=== PATIENT | female | born 1990 | race Caucasian/White ===

== ENCOUNTER → 2024-04-16 16:34 | Outpatient (REF) | payer BC, SELFPAY | LOC: PNTC 16:34 | PROVIDERS: ATTENDING PHYSICIAN Obstetrics & Gynecology | DX: O09.519 Supervision of elderly primigravida, unspecified trimester (principal); O99.283 Endocrine, nutritional and metabolic diseases complicating pregnancy, third trimester | CPT/HCPCS: 76801; 76813 ==

== ENCOUNTER → 2024-06-05 08:05 | Outpatient (REF) | payer BC, SELFPAY | LOC: PNTC 08:05 | PROVIDERS: ATTENDING PHYSICIAN Obstetrics & Gynecology | DX: O09.519 Supervision of elderly primigravida, unspecified trimester (principal); O34.80 Maternal care for other abnormalities of pelvic organs, unspecified trimester | CPT/HCPCS: 76811 ==

== ENCOUNTER → 2024-09-09 17:21 | Outpatient (REF) | payer BC, SELFPAY | LOC: PNTC 17:21 | PROVIDERS: ATTENDING PHYSICIAN Advanced Practice Midwife | DX: O09.519 Supervision of elderly primigravida, unspecified trimester (principal) | CPT/HCPCS: 76816 ==

== ENCOUNTER → 2024-09-18 16:16 | Outpatient (REF) | payer BC, SELFPAY | LOC: PNTC 16:16 | PROVIDERS: ATTENDING PHYSICIAN Advanced Practice Midwife | DX: O41.03X0 Oligohydramnios, third trimester, not applicable or unspecified (principal) | CPT/HCPCS: 76815 ==

== ENCOUNTER → 2024-10-01 15:43 | Outpatient (REF) | payer BC, SELFPAY | LOC: PNTC 15:43 | PROVIDERS: ATTENDING PHYSICIAN Obstetrics & Gynecology | DX: O36.63X0 Maternal care for excessive fetal growth, third trimester, not applicable or unspecified (principal) | CPT/HCPCS: 76816 ==

== ENCOUNTER → 2024-10-08 09:18 | Outpatient (REF) | payer BC, SELFPAY | LOC: PNTC 09:18 | PROVIDERS: ATTENDING PHYSICIAN Advanced Practice Midwife | DX: Z34.93 Encounter for supervision of normal pregnancy, unspecified, third trimester (principal) | CPT/HCPCS: 59025; 76815 ==

== ENCOUNTER 2024-10-15 14:32 | Inpatient (IN) | payer BC, SELFPAY ==
[2024-10-15 12:21] VITALS: BP 149/60; BMI 37.1
[2024-10-15 12:43] LABS: % Basophils 0.7 % (0-2); % Eosinophils 1.2 % (0-6); % Immature Granulocytes 1.1 % (0-0.5); % Lymphocytes 28.8 % (20.5-51.1); % Monocytes 5.3 % (1.7-9.3); % Neutrophils 62.9 % (42.2-75.2); Absolute Basophils 0.1 10^3/uL (0-0.2); Absolute Eosinophils 0.2 10^3/uL (0-0.7); Absolute Immature Granulocytes 0.2 10^3/uL (0-0.05); Absolute Lymphocytes 3.8 10^3/uL (1.2-3.4); Absolute Monocytes 0.7 10^3/uL (0.1-0.6); Absolute Neutrophils 8.2 10^3/uL (1.4-6.5); Hemoglobin 12.4 g/dL (12.0-16.0); Mean Corp Hgb Conc. 32.6 g/dL (33.0-37.0); Mean Corpuscular Hgb 27.2 pg (27.0-31.0); Mean Corpuscular Volume 83.3 fL (81.0-99.0); Mean Platelet Volume 11.4 fL (7.4-10.4); Nucleated Red Blood Cells % 0 %; Platelet Count 400 10^3/uL (130-400); Red Blood Cell Count 4.56 10^6/uL (4.20-5.40); Red Cell Dist. Width 13.2 % (11.5-14.5); White Blood Cell Count 13.1 10^3/uL (4.8-10.8)
[2024-10-15 13:18] LABS: ALT (SGPT) 25 U/L (0-35); AST (SGOT) 31 U/L (14-36); Albumin 4.1 g/dl (3.5-5.0); Alkaline Phosphatase 118 U/L (38-126); Blood Urea Nitrogen 13 mg/dl (7-17); Calcium 10.1 mg/dl (8.4-10.2); Carbon Dioxide 21 mmol/L (22-30); Chloride 100 mmol/L (98-107); Estimated Creatinine Clearance > 125 ml/min; Glucose 70 mg/dl (70-99); Potassium 4.2 mmol/L (3.5-5.1); Sodium 132 mmol/L (135-145); Total Bilirubin 0.3 mg/dl (0.2-1.3); eGFR > 60.00
[2024-10-15 13:23] LABS: Urine Albumin Negative (Neg - Trace); Urine Bilirubin Negative (Negative); Urine Character Clear (Clear); Urine Color Yellow; Urine Glucose Negative (Negative); Urine Ketone Negative (Negative); Urine Leukocyte Negative (Negative); Urine Nitrite Negative (Negative); Urine Occult Blood Negative (Negative); Urine Specific Gravity 1.005 (<1.030); Urine Urobilinogen Negative (Neg - 1+); Urine pH 6.5 (5.0-9.0)
[2024-10-15 14:04] LABS: Protein/creatinine Ratio 0.6; Urine Protein 10 mg/dl
[2024-10-15] MEDS: PITOCIN 30 UNITS/NSS 500 ML IV (16:37)
[2024-10-15] MEDS: LR 1000 IV (22:38)
[2024-10-16] MEDS: GLYCERIN SUPPOSITORY ADULT 1 SUPP RECTAL (02:03)
[2024-10-16] MEDS: SUBLIMAZE 100 MCG EPIDURAL (05:01)
[2024-10-16] MEDS: FENTANYL/BUPIVACAINE 100 EPIDURAL ×2 (05:01→13:43)
[2024-10-16] MEDS: TYLENOL 1000 MG PO (10:58)
[2024-10-16 11:20] LABS: Hematocrit 34.8 % (37.0-47.0); Hemoglobin 11.2 g/dL (12.0-16.0); Mean Corp Hgb Conc. 32.2 g/dL (33.0-37.0); Mean Corpuscular Hgb 27.1 pg (27.0-31.0); Mean Corpuscular Volume 84.1 fL (81.0-99.0); Platelet Count 332 10^3/uL (130-400); Red Blood Cell Count 4.14 10^6/uL (4.20-5.40); Red Cell Dist. Width 13.2 % (11.5-14.5); White Blood Cell Count 17.1 10^3/uL (4.8-10.8)
[2024-10-16 11:43] LABS: ALT (SGPT) 21 U/L (0-35); AST (SGOT) 24 U/L (14-36); Albumin 3.5 g/dl (3.5-5.0); Alkaline Phosphatase 106 U/L (38-126); Blood Urea Nitrogen 15 mg/dl (7-17); Carbon Dioxide 20 mmol/L (22-30); Chloride 102 mmol/L (98-107); Estimated Creatinine Clearance > 125 ml/min; Glucose 86 mg/dl (70-99); Potassium 4.4 mmol/L (3.5-5.1); Sodium 133 mmol/L (135-145); Total Bilirubin 0.4 mg/dl (0.2-1.3); Total Protein 6.1 g/dl (6.3-8.2); eGFR > 60.00
[2024-10-16 11:58] LABS: Uric Acid 6.7 mg/dl (2.5-6.2)
[2024-10-16 15:16] LABS: Absolute Neutrophils -Man Diff 11.9 10^3/uL (1.4-6.5); Atypical Lymphocytes 1 %; Band Neutrophils 0 % (0-3); Lymphocytes 21 % (20-51); Monocytes 8 % (2-9); Segmented Neutrophils 70 % (42-75)
[2024-10-16 15:17] LABS: Normal RBC Morphology Yes; Platelets Checked Yes; Total Cells Counted 100
[2024-10-16] MEDS: MOTRIN 600 MG PO (17:22)
[2024-10-17] MEDS: MOTRIN 600 MG PO ×3 (03:57→21:00)
[2024-10-17] MEDS: SENOKOT-S 1 TABLET PO (12:57)
[2024-10-18] MEDS: SENOKOT-S 1 TABLET PO (08:35)
[2024-10-18] MEDS: MOTRIN 600 MG PO (08:35)
== END 2024-10-18 17:38 | disposition home or self-care (01) | DRG 806 ==
LOC: LDRP 14:32
PROVIDERS: Advanced Practice Midwife; ADMITTING PHYSICIAN Obstetrics & Gynecology
PROC: 0KQM0ZZ Repair Perineum Muscle, Open Approach (ICD-10-PCS; 2024-10-16)
PROC: 10E0XZZ Delivery of Products of Conception, External Approach (ICD-10-PCS; 2024-10-16)
DX: O14.04 Mild to moderate pre-eclampsia, complicating childbirth (principal); O41.03X0 Oligohydramnios, third trimester, not applicable or unspecified; Z37.0 Single live birth; Z3A.39 39 weeks gestation of pregnancy; O70.1 Second degree perineal laceration during delivery; O69.81X0 Labor and delivery complicated by cord around neck, without compression, not applicable or unspecified; O99.284 Endocrine, nutritional and metabolic diseases complicating childbirth; E28.2 Polycystic ovarian syndrome
CPT/HCPCS: 76815; 76820; 80053; 81003; 82570; 84156; 84550; 85025; 85027; 86850; 86900; 86901

== ENCOUNTER 2025-10-09 12:04 | Emergency (ER) | payer BC, SELFPAY ==
[2025-10-09 12:06] VITALS: BP 141/102
[2025-10-09 12:20] VITALS: BMI 31.3
--- NOTE | 2025-10-09 13:14 | ED.CVA ---
History of Present Illness
General
Chief Complaint: CVA/TIA Symptoms
Source: patient
Exam Limitations: none
Time Seen by Provider: 10/09/25 12:46
Nursing documentation reviewed up to this point in time: agreed with
Onset of Stroke Symptoms
Onset of symptoms known: Yes
Date of onset of symptoms: 10/09/25
Time of onset of symptoms: 10:00
History of Present Illness
History of Present Illness:
The patient is a 35-year-old female who reports several years of left-sided neck pain. Patient reports that today she noticed intense throbbing along the left side of her neck in ' the area of her carotid artery' this morning. She grew nervous
when about 3 hours ago (around 10am this morning) she noticed tingling and numbness of her left cheek and as well as numbness extending from her left upper arm, down her left forearm, into her left hand. Additionally, she noticed a feeling of
dizziness and feeling 'off'. patient denies any weakness. She denies any symptoms of her legs. Patient reports she has had throbbing of her left neck many times in the past but has never experienced this type of numbness in her cheek or left arm.
This made her extremely nervous that she was having a stroke. Patient denies any changes in vision. Patient reports that she briefly felt as though it was difficult for her to speak because her tongue felt ' swollen'. Patient reports that overall
her symptoms feel better but she still has a little bit of numbness in her left forearm and left cheek.
Past History
Past History
ED Past Medical History: None
ED Past Surgical History: Other
Social History
Tobacco: Former smoker
Alcohol: Other
Drug: None
Personal:
Living: with family
Employment: Other
Family History
Family History: Other
Review of Systems
Review of Systems
Allergies reviewed?: Yes
All Other Systems: ROS reviewed and negative except as documented in HPI and ROS
Constitutional: Reports no symptoms
EENT: Reports other (Occasional ringing of ears)
Respiratory: Reports no symptoms
Cardiac: Reports no symptoms
ABD/GI: Reports nausea (Intermittent nausea)
: Reports no symptoms
Musculoskeletal: Reports muscle pain (Left sided neck pain) and neck pain
Skin: Reports no symptoms
Neurological: Reports dizzy and numbness
Endocrine: Reports no symptoms
Hematologic/Lymphatic: Reports no symptoms
Psychiatric: Reports no symptoms
Phy Exam
Physical Exam
Physical Exam:
Physical Exam
General: no apparent distress, not acutely ill. Well uncomfortable appearing
Neck: supple. No swelling, erythema of soft tissue neck. Palpable normal feeling carotid pulse
Heart: s1/s2 regular rate and rhythm, no murmur. equal radial pulses.
Lungs: no acute respiratory distress. clear bilaterally
Abdomen: normal bowel sounds. not tender. no CVAT
Neuro: alert and orientedx3. no focal neurological deficits. 5 out of 5 strength in all extremities without drift. Cranial nerves equal and symmetric bilaterally. Patient reports slightly diminished sensation of left
cheek and left dorsal forearm. However, has equal sensation of bilateral neck area and shoulder area. Equal sensation of torso bilaterally and legs bilaterally. Visual lorenz intact. Gait normal. Speech sounds normal
Skin: no rash
Psychiatric: well kept. interactive and cooperative
Extremities: no edema. no calf tenderness. negative homans. good distal pulses
Course
Orders/Labs/Results
Orders:
Orders
10/09/25 13:13
Test Result ONCE
10/09/25 13:14
Electrocardiogram (*1) Urgent
Reason for Study: Vertigo / Dizzy
CT Head & Neck Angio W/wo IV Urgent
Comment:
Reason For Exam: dizziness, L cheek and arm numbness
EKG- Treatment ONCE
10/09/25 13:16
Complete Blood Count/With Diff Urgent
Comprehensive Metabolic Panel Urgent
HCG, Serum Qualitative Screen Urgent
Abnormal Lab Results
10/09/25
13:16
Plt Count 470 H 10^3/uL
(130-400)
Absolute Lymphs (auto) 4.0 H 10^3/uL
(1.2-3.4)
Glucose 100 H mg/dl
(70-99)
10/09/25 13:16
10/09/25 13:16
Vital Signs
Initial and Last Documented VS:
Initial Vital Signs
Temp Pulse Resp BP Pulse Ox
97.7 F 75 18 141/102 99
10/09/25 12:06 10/09/25 12:06 10/09/25 12:06 10/09/25 12:06 10/09/25 12:06
Last Documented Vital Signs
Temp Pulse Resp BP Pulse Ox
97.7 F 68 10 141/102 99
10/09/25 12:06 10/09/25 12:30 10/09/25 12:30 10/09/25 12:06 10/09/25 13:23
MDM/Problems Addressed
Differential Diagnosis Includes:
Acute cervical radiculopathy, acute vertebral dissection, acute CVA, acute vertigo
MDM/Problems Addressed:
Patient presents with acute dizziness, acute on chronic left neck pain and acute numbness of left cheek and left arm
Acute Exacerbation and/or Progression of Chronic Illness:
Patient is acutely hypertensive likely due to anxiety.
Acute Exacerbation and/or Progression of Chronic Illness: HTN
*Radiology
Radiology exam reviewed: radiology read reviewed
*Pulse Oximetry
SaO2: 99
Oxygen Mode of Delivery: Room air
Patient hypoxic: no
*EKG
Interpreted by ED Provider?: Yes
Interpretation: normal
Comparison EKG: no comparison EKG present
Rate: normal
Rhythm: sinus
[place]field: normal axis
Interval: normal interval
QRS Pattern: normal QRS
Ischemia: no ischemia
*[employer] Interpretation
Rate: normal
Interpretation: normal
Rhythm: sinus
*Critical Care Note
Total Time (30-74mins, 75-104mins- exclusive of procedures): Not Applicable
Data Reviewed
Review of Other/Old Records Reveals: Radiology Studies (Normal MRI brain 2021)
Update Note
Update Note:
Patient continues to appear well and comfortable. Numbness and tingling have improved. Symptoms could be due to a cervical radiculopathy. Patient sent home with CT report to show her primary care doctor and encouraged to follow-up with her doctor
within 1 week
ED Attending Note
-
Portions of this chart may have been created with voice recognition software.� Occasional wrong word or��sound alike� substitutions may have occurred due to the inherent limitations of voice recognition software.
Discharge Plan
Departure
Patient Disposition: Home (Routine Discharge)
Date of Disposition: 10/09/25
Time of Disposition: 14:57
Patient with high blood pressure during this ER visit?: Yes
Condition: Good
Covid-19: Not Applicable
Discharge Problem:
Neck pain, Paresthesia and pain of left extremity
Instructions: BLOOD PRESSURE, Paresthesia (DC), Neck pain - ED (DC)
Prescriptions:
No Action
xquripju-zqj-[id number]-FA 1 mg Tablet
1 tab PO DAILY
ibuprofen 600 mg Tablet
600 mg PO Q6HPRN PRN (Reason: moderate pain/cramps) Qty: 30 0RF
Referrals:
Franky Hemphill DO [Family Provider, Family Practice]
Activity Restrictions/Additional Instructions:
Please follow-up with your primary care doctor within 1 week
Interventions
Interventions:
*Neglect/Abuse Screening Last Done: 10/09/25 12:20
*ED COVID-19 Vaccine History Last Done: 10/09/25 12:06
*ED Influenza Vaccine History Last Done: 10/09/25 12:06
[facility] Fall Risk Assessment Tool Last Done: 10/09/25 12:20
*Risk Screen - Suicide (C-SSRS) Last Done: 10/09/25 12:06
ED- Pulmonary Assessment Last Done: 10/09/25 12:20
ED- Neurological Assessment Last Done: 10/09/25 12:20
ED- Cardiac Assessment Last Done: 10/09/25 12:20
ED Swallowing Screen Last Done: 10/09/25 12:20
Discharge Date and Time
Print Language: [place]
[2025-10-09 13:33] LABS: Hematocrit 42.9 % (37.0-47.0); Hemoglobin 14.4 g/dL (12.0-16.0); Mean Corp Hgb Conc. 33.6 g/dL (33.0-37.0); Mean Corpuscular Volume 87.0 fL (81.0-99.0); Nucleated Red Blood Cells % 0 %; Platelet Count 470 10^3/uL (130-400); Red Cell Dist. Width 12.3 % (11.5-14.5)
[2025-10-09 13:45] LABS: HCG, Serum Qualitative Screen Negative
[2025-10-09 13:53] LABS: ALT (SGPT) 23 U/L (0-35); AST (SGOT) 22 U/L (14-36); Albumin 5.0 g/dl (3.5-5.0); Alkaline Phosphatase 84 U/L (38-126); Blood Urea Nitrogen 12 mg/dl (7-17); Calcium 10.2 mg/dl (8.4-10.2); Carbon Dioxide 25 mmol/L (22-30); Chloride 101 mmol/L (98-107); Estimated Creatinine Clearance > 125 ml/min; Glucose 100 mg/dl (70-99); Potassium 4.3 mmol/L (3.5-5.1); Sodium 136 mmol/L (135-145); Total Protein 8.1 g/dl (6.3-8.2); eGFR > 60.00
== END 2025-10-09 15:36 | disposition home or self-care (01) ==
LOC: EMR 12:04
PROVIDERS: EMERGENCY PHYSICIAN Emergency Medicine; FAMILY PHYSICIAN Family Medicine
DX: M54.2 Cervicalgia (principal); R20.2 Paresthesia of skin; M79.602 Pain in left arm; I10 Essential (primary) hypertension; Z87.891 Personal history of nicotine dependence
CPT/HCPCS: 99284; 70496; 70498; 80053; 84703; 85025; 93005; Q9967

== ENCOUNTER 2025-10-14 19:47 | Emergency (ER) | payer BC, SELFPAY ==
[2025-10-14 19:52] VITALS: BP 140/85
--- NOTE | 2025-10-14 21:59 | ED.SKININJ ---
HPI-Injury
General
Chief Complaint: Bite
Source: patient
Time Seen by Provider: 10/14/25 21:52
History of Present Illness-Injury
Initial Injury comments:
35-year-old female with no significant past medical history presenting to the emergency department for evaluation at the request of her primary care provider after she was bit on the right hand by a feral cat yesterday, started on antibiotics but
was recommended to be treated for rabies. Patient reports that the cat was brought to the [facility] where it is currently being managed in quarantine. Patient is without any other concerns.
Past History
Past History
ED Past Medical History: None
ED Past Surgical History: Other
Social History
Tobacco: Former smoker
Alcohol: Other
Drug: None
Personal:
Living: with family
Employment: Other
Family History
Family History: Other
Review of Systems
Review of Systems
All Other Systems: ROS reviewed and negative except as documented in HPI and ROS
Phy Exam
Physical Exam
Physical Exam:
GENERAL: Alert , in no apparent distress
EYE: conjunctiva clear
Head: Normocephalic atraumatic
NECK: Supple,
ENT: mmm.
LUNGS: no acute respiratory distress
NEUROLOGICAL: Alert and oriented
SKIN: Warm and dry, small puncture to the dorsal surface of the right hand interdigital webbing space, no surrounding erythema
MUSCULOSKELETAL: well perfused.
PSYCH: Normal and appropriate interaction.
Scores
Heart Failure Risk
Heart Failure Risk Score: Not Applicable
Heart Score for Chest Pain Patients
STEMI patient?: Not applicable
Withdrawal Assessment of Alcohol
Withdrawal Assessment Completed?: Not applicable
Course
Vital Signs
Initial and Last Documented VS:
Initial Vital Signs
Temp Pulse Resp BP Pulse Ox
97.9 F 89 20 140/85 96
10/14/25 19:52 10/14/25 19:52 10/14/25 19:52 10/14/25 19:52 10/14/25 19:52
Last Documented Vital Signs
Temp Pulse Resp BP Pulse Ox
97.9 F 89 18 140/85 96
10/14/25 19:52 10/14/25 19:52 10/14/25 20:00 10/14/25 19:52 10/14/25 21:59
MDM/Problems Addressed
MDM/Problems Addressed:
35-year-old female presenting to the ER for evaluation at the request of her primary care provider who felt patient should be treated for rabies. I did discuss with patient that given the Is at the [facility] and being quarantined/monitored as well as
patient has the information for the cat and that if the cat were to pass away she was already notified that the cat would be tested for rabies we ultimately decided that patient can wait for results on the cat prior to initiating treatment for
rabies. I did offer rabies vaccination to the patient if she still felt more comfortable initiating the rabies series however patient declined and ultimately wished to be discharged home. Discussed with patient that she may return to the ER at any
time if she chooses to be vaccinated for rabies. Stable for discharge home otherwise.
*Pulse Oximetry
SaO2: 96
Oxygen Mode of Delivery: Room air
Patient hypoxic: no
*Critical Care Note
Total Time (30-74mins, 75-104mins- exclusive of procedures): Not Applicable
ED Attending Note
-
Portions of this chart may have been created with voice recognition software.� Occasional wrong word or��sound alike� substitutions may have occurred due to the inherent limitations of voice recognition software.
Discharge Plan
Departure
Patient Disposition: Home (Routine Discharge)
Date of Disposition: 10/14/25
Time of Disposition: 21:59
Patient with high blood pressure during this ER visit?: Yes
Discharge Problem:
Cat bite of right hand
Instructions: Animal Bites (DC)
Prescriptions:
No Action
hdyfzqfx-gji-Hb-FA 1 mg Tablet
1 tab PO DAILY
ibuprofen 600 mg Tablet
600 mg PO Q6HPRN PRN (Reason: moderate pain/cramps) Qty: 30 0RF
Referrals:
Franky Hemphill DO [Family Provider, Family Practice]
Interventions
Interventions:
*General Assessment Last Done: 10/14/25 19:52
*Neglect/Abuse Screening Last Done: 10/14/25 19:52
*ED COVID-19 Vaccine History Last Done: 10/14/25 22:06
*ED Influenza Vaccine History Last Done: 10/14/25 22:06
[facility] Risk Assessment Tool Last Done: 10/14/25 22:06
*Risk Screen - Suicide (C-SSRS) Last Done: 10/14/25 22:06
*Nursing Disposition Last Done: 10/14/25 22:06
ED-Skin Assessment Last Done: 10/14/25 22:02
Discharge Date and Time
Print Language: DIVEHI
== END 2025-10-14 22:06 | disposition home or self-care (01) ==
LOC: EMR 19:47
PROVIDERS: EMERGENCY PHYSICIAN Student in an Organized Health Care Education/Training Program; FAMILY PHYSICIAN Family Medicine
DX: S61.451A Open bite of right hand, initial encounter (principal); W55.01XA Bitten by cat, initial encounter; Z87.891 Personal history of nicotine dependence
CPT/HCPCS: 99282